=== PATIENT | female | born 1975 | race Caucasian/White ===

== ENCOUNTER → 2016-10-22 | Outpatient (CLI) | payer OTHER ==
[~2016-10-22] MED LIST: PREN29TA PO
== END ==
LOC: HPND 08:42
PROVIDERS: ATTEND Obstetrics & Gynecology
DX: O09.32 Supervision of pregnancy with insufficient antenatal care, second trimester (principal); O09.812 Supervision of pregnancy resulting from assisted reproductive technology, second trimester
CPT/HCPCS: 36415; 76811; 76817

== ENCOUNTER → 2016-11-19 | Outpatient (CLI) | payer OTHER | LOC: HPND 08:47 | PROVIDERS: ATTEND Obstetrics & Gynecology | DX: O09.522 Supervision of elderly multigravida, second trimester (principal); O09.812 Supervision of pregnancy resulting from assisted reproductive technology, second trimester; O34.82 Maternal care for other abnormalities of pelvic organs, second trimester; O44.02 Complete placenta previa NOS or without hemorrhage, second trimester; O28.3 Abnormal ultrasonic finding on antenatal screening of mother | CPT/HCPCS: 76816; 76825; 76827; 93325 ==

== ENCOUNTER → 2016-12-16 | Outpatient (CLI) | payer OTHER | LOC: HPND 08:49 | PROVIDERS: ATTEND Obstetrics & Gynecology | DX: O09.522 Supervision of elderly multigravida, second trimester (principal); O09.812 Supervision of pregnancy resulting from assisted reproductive technology, second trimester; Z3A.25 25 weeks gestation of pregnancy | CPT/HCPCS: 76816 ==